=== PATIENT | male | born 1980 | race Caucasian/White ===

== ENCOUNTER 2016-07-01 13:32 | Emergency (ER) | payer OTHER ==
[~2016-07-01] VITALS: Ht 165.1 cm; Wt 75.0 kg
[2016-07-01] MEDS ORDERED: OLANZapine IM 10 MG VIAL IM ONE ×2 (13:49→14:00)
--- NOTE | 2016-07-01 13:53 | PD ---
HPI Chief Complaint: Psychiatric Symptoms Time Seen by Provider: 13:53 Travel History International Travel<30 days: No Contact w/Intl Traveler<30days: No Traveled to known affect area: No History of Present Illness HPI 36-year-old male brought to the emergency department under a Bo act by [facility] for psychiatric evaluation. Patient was making threats about hurting others. He was yelling in the streets and responding to what appeared to be internal stimuli. Patient does not offer any history. He is combative and argumentative in the triage area. He is moved to the psychiatric pod [facility] Past Medical History Medical History: Unable to Obtain Social History Tobacco Use: No Allergies-Medications (Allergen,Severity, Reaction): Coded Allergies: UNOBTAINABLE (Unverified , 07/01/16) psychotic Review of Systems ROS Limitations: Uncooperative, Combative, Psychotic Physical Exam Exam Limitations: Uncooperative, Combative, Psychotic Narrative GENERAL: Well-nourished, well-developed patient, acutely psychotic, combative, aggressive for count includes the [facility]. Physical exam is limited because of this. SKIN: Appears dry. HEAD: Normocephalic. EYES: No scleral icterus. No injection or drainage. NECK: trachea midline. CARDIOVASCULAR: Regular rate RESPIRATORY: . No accessory muscle use. GASTROINTESTINAL: Abdomen nondistended. MUSCULOSKELETAL: No cyanosis, or edema. BACK: without obvious deformity. Data Data Last Documented VS Vital Signs Date Time Temp Pulse Resp B/P Pulse Ox O2 Delivery O2 Flow Rate FiO2 07/01/16 18:23 81 17 104/54 98 Room Air Orders Complete Blood Count With Diff (07/01/16 13:45) Comprehensive Metabolic Panel (07/01/16 13:45) Drug Screen, Random Urine (07/01/16 13:45) Psych Screen (07/01/16 13:45) Olanzapine Inj (Zyprexa Inj) (07/01/16 14:00) Restraints Violent (07/01/16 14:06) Diet Regular Basic (07/01/16 Dinner) Olanzapine Inj (Zyprexa Inj) (07/01/16 13:49) Lorazepam Inj (Ativan Inj) (07/01/16 17:00) Labs Laboratory Tests Test 07/01/16 07/01/16 14:15 19:15 Urine Opiates Screen NEG Urine Barbiturates Screen NEG Urine Amphetamines Screen NEG Urine Benzodiazepines Screen NEG Urine Cocaine Screen NEG Urine Cannabinoids Screen POS White Blood Count 14.4 TH/MM3 Red Blood Count 5.49 MIL/MM3 Hemoglobin 15.5 GM/DL Hematocrit 45.0 % Mean Corpuscular Volume 81.9 FL Mean Corpuscular Hemoglobin 28.2 PG Mean Corpuscular Hemoglobin 34.4 % Concent Red Cell Distribution Width 13.1 % Platelet Count 333 TH/MM3 Mean Platelet Volume 7.8 FL Neutrophils (%) (Auto) 59.9 % Lymphocytes (%) (Auto) 30.5 % Monocytes (%) (Auto) 8.5 % Eosinophils (%) (Auto) 0.8 % Basophils (%) (Auto) 0.3 % Neutrophils # (Auto) 8.6 TH/MM3 Lymphocytes # (Auto) 4.4 TH/MM3 Monocytes # (Auto) 1.2 TH/MM3 Eosinophils # (Auto) 0.1 TH/MM3 Basophils # (Auto) 0.0 TH/MM3 CBC Comment DIFF FINAL Differential Comment Sodium Level 140 MEQ/L Potassium Level 4.0 MEQ/L Chloride Level 106 MEQ/L Carbon Dioxide Level 26.9 MEQ/L Anion Gap 7 MEQ/L Blood Urea Nitrogen 12 MG/DL Creatinine 0.89 MG/DL Estimat Glomerular Filtration 98 ML/MIN Rate Random Glucose 98 MG/DL Calcium Level 8.7 MG/DL Total Bilirubin 0.7 MG/DL Aspartate Amino Transf 28 U/L (AST/SGOT) Alanine Aminotransferase 26 U/L (ALT/SGPT) Alkaline Phosphatase 66 U/L Total Protein 7.2 GM/DL Albumin 3.9 GM/DL [facility] Medical Decision Making Medical Screen Exam Complete: Yes Emergency Medical Condition: Yes Medical Record Reviewed: Yes Differential Diagnosis Mood disorder versus personality disorder versus polysubstance abuse versus acute psychosis Narrative Course 36-year-old male presents to emergency department for evaluation under a Bo act. Patient is acutely psychotic, combative, uncooperative. He is taken immediately to psychiatric pod and given 10 mg IM Zyprexa. Assessment is very difficult and unsafe at this time due to patient's behavior. He appears without acute medical needs.. CBCs with mild leukocytosis 14.4. CMP is without acute concern. He is medically cleared to undergo psychiatric screening for further evaluation and disposition. Mental health screening discussed with the patient. Psychiatric screen ordered. Diagnosis Primary Impression: Acute psychosis Condition: Stable Ying Bazan Jul 01, 2016 13:53
[2016-07-01 15:04] LABS: AMPHETAMINE, URINE NEG (NEG); BARBITURATES, URINE NEG (NEG); COCAINE, URINE NEG (NEG)
[2016-07-01] MEDS ORDERED: LORazepam 2 MG/ML VIAL IM ONE (17:00)
[2016-07-01 18:23] VITALS: BP 104/54; PULSE 81; RESP 17; O2SAT 98
[2016-07-01 19:34] LABS: AUTOMATED NEUTROPHIL # 8.6 TH/MM3 (1.8-7.7); BASOPHIL % 0.3 % (0.0-2.0); EOSINOPHIL # 0.1 TH/MM3 (0-0.4); EOSINOPHIL % 0.8 % (0.0-4.0); HEMO FLAGS DIFF FINAL; LYMPH % 30.5 % (9.0-44.0); LYMPHOCYTE # 4.4 TH/MM3 (1.0-4.8); MEAN CELL VOLUME 81.9 FL (80.0-100.0); MEAN CORPUSCULAR HEMOGLOBIN 28.2 PG (27.0-34.0); MEAN CORPUSCULAR HGB CONC 34.4 % (32.0-36.0); MONO % 8.5 % (0.0-8.0); NEUT % 59.9 % (16.0-70.0); PLATELET COUNT 333 TH/MM3 (150-450); RED BLOOD COUNT 5.49 MIL/MM3 (4.50-5.90); RED CELL DISTRIBUTION WIDTH 13.1 % (11.6-17.2); WHITE BLOOD COUNT 14.4 TH/MM3 (4.0-11.0)
[2016-07-01 19:57] LABS: ANION GAP 7 MEQ/L (5-15); AST (GOT) 28 U/L (15-37); BICARBONATE 26.9 MEQ/L (21.0-32.0); BLOOD UREA NITROGEN 12 MG/DL (7-18); CHLORIDE 106 MEQ/L (98-107); GLOMERULAR FILTRATION RATE 98 ML/MIN (>89); SODIUM (NA) 140 MEQ/L (136-145)
[2016-07-01 20:00] LABS: ALKALINE PHOSPHATASE 66 U/L (45-117); ALT (GPT) 26 U/L (12-78); TOTAL BILIRUBIN ADULT 0.7 MG/DL (0.2-1.0)
== END 2016-07-01 20:22 ==
LOC: NEPJ 13:32
DX: F23 Brief psychotic disorder (principal)
CPT/HCPCS: 80053; 80307; 85025; 96372; 99284; J2060